=== PATIENT | male | born 1935 | race Caucasian/White ===

== ENCOUNTER 2016-10-31 23:12 | Emergency (ER) | payer OTHER ==
[~2016-10-31] VITALS: Ht 172.7 cm; Wt 81.6 kg
[2016-11-01 00:12] LABS: BASOPHILS % (AUTO) 0.2 % (0.0-2.0); DIFF TOTAL % 100 %; HEMATOCRIT 37 % (39-51); HEMOGLOBIN 12.2 g/dL (13.5-17.5); LYMPHOCYTES # (AUTO) 1.1 /CMM (0.8-4.8); LYMPHOCYTES % (AUTO) 5.5 % (20.0-44.0); MEAN CORPUSCULAR HEMOGLOBIN 30 PG (26.0-33.0); MEAN CORPUSCULAR HGB CONC 33 g/dl (31.0-36.0); MEAN CORPUSCULAR VOLUME 91 fL (80-96); MONOCYTES # (AUTO) 1.4 /CMM (0.1-1.30); MONOCYTES % (AUTO) 6.8 % (2.0-12.0); NEUTROPHILS # (AUTO) 17.6 /CMM (1.8-8.9); NEUTROPHILS % (AUTO) 87.5 % (43.0-81.0); PLATELET COUNT (AUTO) 253 /CMM (150-450); RED BLOOD CELL COUNT(AUTO) 4.05 MIL/uL (4.5-6.0); WHITE BLOOD COUNT (AUTO) 20.1 K/uL (4.3-11.0)
[2016-11-01 00:22] LABS: ANION GAP 14 (5-14); CALCIUM, SERUM 8.8 mg/dL (8.5-10.1); CARBON DIOXIDE 27 mmol/L (21-32); CHLORIDE 99 mmol/L (98-107); CREATININE 2.5 mg/dL (0.6-1.3); GLUCOSE 113 mg/dL (74-106); POTASSIUM 4.3 mmol/L (3.5-5.1); SODIUM SERUM 136 mmol/L (136-145); UREA NITROGEN, BLOOD 51 mg/dL (7-18)
[2016-11-01 00:30] LABS: TROPONIN I < 0.017 ng/mL (0.00-0.056)
[2016-11-01 00:35] LABS: ASPARTATE AMINOTRANSFERASE 19 U/L (15-37); BILIRUBIN,DIRECT 0.1 mg/dL (0.0-0.2); BILIRUBIN,TOTAL 0.6 mg/dL (0.2-1.0); INDIRECT BILIRUBIN 0.5 mg/dL (0.0-1.1); LACTIC ACID 0.8 mmol/L (0.4-2.0); TOTAL PROTEIN, SERUM 7.5 g/dL (6.4-8.2)
[2016-11-01 00:41] LABS: INR 1.02 (0.87-1.13)
[2016-11-01 00:53] LABS: ALANINE AMINOTRANSFERASE 7 U/L (12-78)
[2016-11-01 01:41] LABS: ADD UA MICROSCOPIC YES
[2016-11-01 01:43] LABS: WBC,URINE TOO NUMEROUS TO COUN /HPF (0-3)
[2016-11-01 01:52] LABS: BAND % (MANUAL) 1 % (0.0-5.0); LYMPHOCYTES % (MANUAL) 9 % (16-48)
[2016-11-01 01:53] LABS: PLATELET ESTIMATE ADEQUATE
[2016-11-01] MEDS ORDERED: CEFTRIAXONE 1GM BAG (ER ONLY) 1 GM/50 ML PIGGYBACK IV ONE (02:00)
[2016-11-01] MEDS ORDERED: IV NS 0.9% 500 ML BAG IV ONE (02:30)
[2016-11-01] MEDS ORDERED: IV SET PRIMARY 1 EA INFUS.SET MC ONE (02:38)
[2016-11-01] MEDS ORDERED: CEFTRIAXONE 1GM BAG (ER ONLY) 50 ML IV ONE (02:38)
[2016-11-01] MEDS ORDERED: IV NS 0.9% 500 ML IV ONE (02:38)
[2016-11-01 04:57] VITALS: BP 120/71
== END 2016-11-01 06:11 | disposition short-term general hospital (02) ==
LOC: ER 23:14
DX: N39.0 Urinary tract infection, site not specified (principal); G93.40 Encephalopathy, unspecified
CPT/HCPCS: 36415; 71010; 80048; 80076; 81001; 83605; 83880; 84484; 85025; 85730; 87040 ×2; 87077; 87086; 87186; 93005; 96365; 99285; A4606; J0696; J7040; 81000-TC; Z7610

== ENCOUNTER 2017-03-29 20:16 | Emergency (ER) | payer OTHER ==
[~2017-03-29] VITALS: Ht 175.3 cm; Wt 70.3 kg
--- NOTE | 2017-03-29 20:18 | NUR ---
PT [facility]IBRA TO ER BED 11. PER FRIEND, BOARD AND CARE CALLED HER TELLING HER PT HAS FEVER AND TACHYCARDIC X TODAY. PT IS FEBRILE AND TACHY PIE BAKER. GOWNED AND PLACED ON MONITOR. AWAITNG MD BUENO.
--- NOTE | 2017-03-29 20:36 | NUR ---
GDR ABDULLAHI AT BEDSIDE FOR EVAL.
[2017-03-29] MEDS ORDERED: ACETAMINOPHEN 650 MG/SUPP.RECT RC ONE ×2 (20:45→21:00)
--- NOTE | 2017-03-29 20:45 | NUR ---
Ryan vazquez in [facility] - 03/29/17 at 2245 by NEELAM DRILLING ASSISTANT AT BEDSIDE FOR NOLBERTOAL.
--- NOTE | 2017-03-29 20:45 | NUR ---
CAR WASH ATTENDANT AT BEDSIDE FOR BLOOD DRAW.
[2017-03-29 20:55] LABS: BASOPHILS # (AUTO) 0.6 /CMM (0.0-0.2); BASOPHILS % (AUTO) 3.8 % (0.0-2.0); EOSINOPHILS # (AUTO) 0.3 /CMM (0.0-0.7); EOSINOPHILS % (AUTO) 2.1 % (0.0-6.0); HEMATOCRIT 49 % (39-51); LYMPHOCYTES # (AUTO) 2.2 /CMM (0.8-4.8); LYMPHOCYTES % (AUTO) 13.6 % (20.0-44.0); MEAN CORPUSCULAR HEMOGLOBIN 29 PG (26.0-33.0); MEAN CORPUSCULAR HGB CONC 33 g/dl (31.0-36.0); MEAN CORPUSCULAR VOLUME 88 fL (80-96); MONOCYTES # (AUTO) 1.1 /CMM (0.1-1.30); MONOCYTES % (AUTO) 6.6 % (2.0-12.0); NEUTROPHILS % (AUTO) 73.9 % (43.0-81.0); PLATELET COUNT (AUTO) 302 /CMM (150-450); RDW COEFFICIENT OF VARIATION 13.8 (11.5-15.0); RED BLOOD CELL COUNT(AUTO) 5.51 MIL/uL (4.5-6.0); WHITE BLOOD COUNT (AUTO) 16.2 K/uL (4.3-11.0)
--- NOTE | 2017-03-29 21:01 | NUR ---
RADIOLOGY AT BEDSIDE FOR CHEST XRAY.
[2017-03-29 21:09] LABS: INR 0.95 (0.87-1.13); PROTHROMBIN TIME 9.9 SECS (9.5-12.7)
[2017-03-29 21:14] LABS: ALANINE AMINOTRANSFERASE < 6 U/L (12-78); ALBUMIN 3.7 g/dL (3.4-5.0); ALKALINE PHOSPHATASE 86 U/L (46-116); ASPARTATE AMINOTRANSFERASE 15 U/L (15-37); BILIRUBIN,DIRECT 0.1 mg/dL (0.0-0.2); BILIRUBIN,TOTAL 0.4 mg/dL (0.2-1.0); CALCIUM, SERUM 9.3 mg/dL (8.5-10.1); CARBON DIOXIDE 29 mmol/L (21-32); CHLORIDE 107 mmol/L (98-107); CREATININE 1.3 mg/dL (0.6-1.3); GLUCOSE 118 mg/dL (74-106); POTASSIUM 4.7 mmol/L (3.5-5.1); SODIUM SERUM 142 mmol/L (136-145); TOTAL PROTEIN, SERUM 8.1 g/dL (6.4-8.2); UREA NITROGEN, BLOOD 24 mg/dL (7-18)
[2017-03-29 21:18] LABS: TROPONIN I < 0.017 ng/mL (0.00-0.056)
[2017-03-29] MEDS ORDERED: IV SET PRIMARY 1 EA INFUS.SET MC ONE ×2 (22:09→23:23)
[2017-03-29] MEDS ORDERED: IV NS 0.9% 1,000 ML ONE ×2 (22:09→23:23)
[2017-03-29 22:28] LABS: APPEARANCE,URINE CLOUDY (CLEAR); BILIRUBIN,URINE NEGATIVE (NEGATIVE); BLOOD, URINE TRACE-INTA Ery/uL (NEGATIVE); COLOR,URINE YELLOW (YELLOW); KETONES,URINE NEGATIVE (NEGATIVE); LEUKOCYTE ESTERASE ,URINE 3+ (NEGATIVE); NITRITE, URINE NEGATIVE (NEGATIVE); PH,URINE 7.5 (5.0-8.0); PROTEIN,URINE 1+ mg/dl (NEGATIVE); UGLUCOSE NEGATIVE (NEGATIVE); UROBILINOGEN,URINE 0.2 EU/dL (0.2)
[2017-03-29] MEDS ORDERED: IV NS 0.9% 1,000 ML BAG IV ONE ×2 (22:30→23:30)
[2017-03-29 22:32] LABS: BACTERIA,URINE Few /HPF (None Seen); SQUAMOUS EPITHELIAL CELL,UR Few /HPF (None Seen)
[2017-03-29 22:33] LABS: WBC,URINE 21-50 /HPF (0-3)
[2017-03-29 22:35] LABS: URINE AMORPHOUS URATE Moderate /HPF (None Seen)
--- NOTE | 2017-03-29 22:44 | NUR ---
CONSERVATOR CUONG LEFT CONTACT # [phone]
--- NOTE | 2017-03-29 23:18 | NUR ---
CALLED NURSING SUPERVISOR OPENING AND PICKING FOR M/S PLACEMENT
[2017-03-29] MEDS ORDERED: PIPERACILLIN /TAZOBACTAM 3.375 G VIAL IV ONE (23:23)
[2017-03-29] MEDS ORDERED: LEVOFLOXACIN 750 MG /D5W 150ML 150 ML IV ONE (23:23)
[2017-03-29] MEDS ORDERED: IV SET PRIMARY PUMP SET 1 EA INFUS.SET MC ONE (23:23)
[2017-03-29] MEDS ORDERED: VANCOMYCIN 1 GM VIAL ONE (23:23)
--- NOTE | 2017-03-29 23:25 | NUR ---
CALLED [facility] REGARDING OPEN CASE. SPOKE WITH GAEL, CASE ASSIGNED TO DR. Caprice CARABALLO
[2017-03-29] MEDS ORDERED: LEVOFLOXACIN 750 MG /D5W 150ML PIGGYBACK IV ONE (23:30)
[2017-03-29] MEDS ORDERED: VANCOMYCIN 1 GM in IV D5W 250 ML IV ONE (23:30)
[2017-03-29] MEDS ORDERED: PIPERACILLIN /TAZOBACTAM 3.375 G in IV D5W 50 ML IV ONE (23:30)
--- NOTE | 2017-03-29 23:53 | NUR ---
MAGUE FROM [facility] CALLED. WILL SEND TRANSFER AMBULANCE IN 90 MINS.
--- NOTE | 2017-03-30 01:05 | NUR ---
TRANSPORT AMBULACE AT BEDSIDE TO TAKE PT BACK TO BOARD AND CARE. D/C IN STABLE CONDITION.
[2017-03-30 01:07] VITALS: BP 109/68
== END 2017-03-30 01:08 | disposition home or self-care (01) ==
LOC: ER 20:18 → MERGE 20:18 → ER 03-30 01:08
DX: R50.9 Fever, unspecified (principal); N39.0 Urinary tract infection, site not specified; R00.0 Tachycardia, unspecified; D72.829 Elevated white blood cell count, unspecified; E86.0 Dehydration; F32.9 Major depressive disorder, single episode, unspecified; G20 Parkinson's disease; K21.9 Gastro-esophageal reflux disease without esophagitis
CPT/HCPCS: 36415; 51702; 71010; 80048; 80076; 81001; 83605; 84484; 85025; 85730; 87040 ×2; 87086; 93005; 96365; 96367; 99285; A4606; J1956; J2543; J3370; J7030 ×2; 81000-TC; 87186-TC; Z7610